=== PATIENT | female | born 1955 | race African-American/Black ===

== ENCOUNTER 2022-04-20 10:12 | Emergency (ER) | payer MEDICARE, OTHER ==
[~2022-04-20] VITALS: Ht 152.4 cm; Wt 36.8 kg
[2022-04-20] MEDS ORDERED: DIPHTH/TETANUS/ACEL. PERTUSSIS 0.5 ML SYR IM ONE (11:00)
[2022-04-20] MEDS ORDERED: LIDOCAINE VISC 2% SOLN 15 ML UDC ONE (11:05)
[2022-04-20] MEDS ORDERED: LIDOCAINE HCL 1% LOCAL INJ 20 ML VIAL ONE (11:05)
[2022-04-20] MEDS ORDERED: BACITRACIN ZINC 0.9GM TP ONE ×2 (11:06→12:00)
[2022-04-20] MEDS ORDERED: TETANUS/DIPHTHERIA TOX ADULT 0.5 ML SYR ONE (11:10)
[2022-04-20] MEDS ORDERED: LOSARTAN POTASS25 MG PO (11:13)
[2022-04-20] MEDS ORDERED: LIDOCAINE 1% 10 ML MULTIDOSE VIAL IJ ONE (12:00)
[2022-04-20] MEDS ORDERED: LIDOCAINE VISC 2% SOLN 15 ML UDC PO ONE (12:00)
[2022-04-20] MEDS ORDERED: PENICILLIN V P500 MG PO (13:08)
== END 2022-04-20 13:21 | disposition home or self-care (01) ==
LOC: FSED 10:43
DX: S01.511A Laceration without foreign body of lip, initial encounter (principal); W01.0XXA Fall on same level from slipping, tripping and stumbling without subsequent striking against object, initial encounter; Y93.01 Activity, walking, marching and hiking; Y92.89 Other specified places as the place of occurrence of the external cause; I10 Essential (primary) hypertension; R63.0 Anorexia; F41.9 Anxiety disorder, unspecified; F32.A Depression, unspecified
CPT/HCPCS: 12014; 90471; 90714 ×2; 93005; 96372; 99284; J2001